=== PATIENT | male | born 1970 | race Caucasian/White ===

== ENCOUNTER 2017-03-20 17:47 | Emergency (ER) | payer OTHER ==
[2017-03-20 20:09] LABS: HEMOGLOBIN 15.7 gm/dl (14.0-17.5); RED BLOOD COUNT 5.42 M/UL (4.20-5.50); WHITE BLOOD COUNT 10.4 K/UL (4.5-11.0)
[2017-03-20 20:26] LABS: BUN/CREATININE RATIO 24 (0-10)
== END 2017-03-20 21:40 | disposition left against medical advice (07) ==
LOC: ER1 17:47
PROVIDERS: Physician Assistant Medical
DX: R06.02 Shortness of breath (principal); R53.83 Other fatigue
CPT/HCPCS: 36415; 71020; 80053; 81001; 82550; 82553; 83874; 84484; 85025; 93005; 96374; 99284; J2405; J7030

== ENCOUNTER 2022-06-27 15:08 | Emergency (ER) | payer OTHER | END 2022-06-27 16:09 | disposition left against medical advice (07) | LOC: ER1 15:08 | DX: Z53.21 Procedure and treatment not carried out due to patient leaving prior to being seen by health care provider (principal) ==